=== PATIENT | female | born 1960 | race Caucasian/White ===

== ENCOUNTER 2019-01-15 09:09 | Inpatient (IN) | payer OTHER ==
[~2019-01-15] VITALS: Ht 170.2 cm; Wt 120.0 kg
[2019-01-15 09:10] VITALS: Ht 170.2 cm; Wt 120.0 kg
--- NOTE | 2019-01-15 09:34 | NUR ---
PT LYING IN BED COMFORTABLY ON HER R SIDE WHICH IS MOST COMFORTABLE FOR HER PT DENIES NEED FOR ADDITIONAL PAIN MEDICINE AT THIS TIME. DAUGHTER AT BEDSIDE WILL MONITOR. AWAITING MD HORNE AND FURTHER ORDERS
--- NOTE | 2019-01-15 11:36 | NUR ---
MSE COMPLETED BY DR PAINTER
--- NOTE | 2019-01-15 12:00 | NUR ---
PT ASSISTED TO BEDPAN TO VOID WITH NO PROBLEM
--- NOTE | 2019-01-15 12:09 | NUR ---
PT MEDICATED PER MD ORDERS SEE EMAR. PT AAOX4 NO DISTRESS. VSS WILL MONITOR FOR ANY ADVERSE EFFECTS
--- NOTE | 2019-01-15 12:39 | NUR ---
PT CRYING STATES PAIN IS WORSE 03/[address] PAINTER AT BEDSIDE AWAITING FURTHER ORDERS
[2019-01-15 12:58] LABS: BASOPHIL % 0.3 % (0-2); PLATELET COUNT 170 x10^3mcL (130-400); RED CELL DISTRIBUTION WIDTH 12.1 % (11.5-14.5)
[2019-01-15 13:00] LABS: CALCIUM 8.8 mg/dL (8.5-10.1); CARBON DIOXIDE 28.7 mmol/L (21-32); CHLORIDE SERUM 107 mmol/L (98-107); CREATININE SERUM 0.7 mg/dL (0.6-1.0); GFR1 > 60 mL/min; GLUCOSE SERUM 107 mg/dL (74-106); POTASSIUM SERUM 3.6 mmol/L (3.5-5.1); SODIUM SERUM 144 mmol/L (136-145)
[2019-01-15 13:05] LABS: ALBUMIN 3.9 g/dL (3.4-5.0); ALKALINE PHOSPHATASE 64 U/L (46-116); ALT/SGPT 72 U/L (14-59); AST/SGOT 32 U/L (15-37); BILIRUBIN TOTAL 0.55 mg/dL (0.20-1.00); TOTAL PROTEIN, SERUM 7.2 g/dL (6.4-8.2)
--- NOTE | 2019-01-15 13:06 | NUR ---
PT BACK FROM CT. PT WRETCHING NAUSEAOUS AFTER CT. ER MD NOTIFIED. AWAITING MD ORDERS.
--- NOTE | 2019-01-15 13:45 | NUR ---
REPORT GIVEN TO MARAH RN RESUMING CARE OF PT IN MED SURG FLOOR.
[2019-01-15] MEDS ORDERED: BENICAR HCT1 TAB (13:48)
[2019-01-15] MEDS ORDERED: ATENOLOL25 MG (13:48)
[2019-01-15] MEDS ORDERED: IBUPROFEN (13:49)
[2019-01-15] MEDS ORDERED: METFORMIN500 M1 (13:49)
--- NOTE | 2019-01-15 13:55 | NUR ---
PT NAUSEOUS VOMITING. DUE TO VOMITING PT HAD INCONTINENT EPISODE OF URINE IN BED. UNABLE TO CHANGE GOWN AND LINEN DUE TO SEVERE PAIN AND PT STATING SHE CAN'T MOVE. ER MD AWARE WILL MEDICATE PER MD ORDERS
--- NOTE | 2019-01-15 14:05 | NUR ---
PT MEDICATED PER MD ORDERS SEE EMAR. VSS
--- NOTE | 2019-01-15 14:12 | NUR ---
UPDATED REPORT GIVEN TO [facility] OF RECENT EVENTS. AWAITING OK FROM ER MD TO TRANSFER PT TO MED SURG FLOOR. WILL CONTINUE TO MONITOR
--- NOTE | 2019-01-15 14:20 | NUR ---
PT TO MED SURG FLOOR VIA AUDREY NO DISTRESS VSS IV SITE PATENT. TIH RESUMING CARE OF PT.
--- NOTE | 2019-01-15 14:30 | NUR ---
REEIVED PT FROM ER VIA AUDREY, ASSITED BY ERT, AXOX4, VERBAL, ABLE TO MAKE NEEDS KNOWN, PERLLA, NO REDNESS/DRAINAGE, DENIED CP/PRESSURE, DENIED N/V/D AT THIS TIME, NO FACIAL DROOP/SLURRED SPEECH, RESP EVEN AND NON-LABORED, CHEST RISE SYMMETRICALLY, ABD SOFT AND NON-TERNDER TO TOUCH, LAST BM 01/13/19, SOFT PER PT REPORTED, ABLE TO MOVE ALL EXTREMITIES, REPORTED BACK PAIN, 5/10, DULL, INTERMITTEN BUT WAS ABLE TO FALL ASLEEP AFTER ASSESSMENT, GENERALIZED WEAKNESS, PALP PULSES, CAP REFILL < 3 SECS, SKIN W/D/C, IV PATENT AND NO INFILTRATION NOTED, CONTINENT, AMBULATORY W/ ASSIST, ALL NEEDS ADDRESSED AT THIS TIME, CALL LIGHT IN REACH, BED LOCKED AT LOW POSITION, RAILS X 2, EDUCATED TO CALL FOR ASSISTANCE WHEN OOB, VERBALLY UNDERSTANDING, CONTINUE TO MONITOR
[2019-01-15 14:54] VITALS: BP 152/62
--- NOTE | 2019-01-15 15:35 | NUR ---
DR BRAUNED PAGED RELATED TO PT DIET ORDER, NO CALL BACK AT THIS TIME, CHARGE NURSE PASTOR MADE AWARE
--- NOTE | 2019-01-15 15:46 | NUR ---
PT SLEEPING IN BED, IN NO APPARENT DISTRESS, CONTINUE TO MONITOR
--- NOTE | 2019-01-15 16:25 | NUR ---
URINE COLLECTED FOR UA, MRSA SCREENING DONE, PT RESTING W/ EYES CLOSED IN BED AT THIS TIME, IN NO APPARENT DISTRESS, REPOTED TOLERABLE PAIN, PAIN, CONTINUE TO MONITOR
--- NOTE | 2019-01-15 17:17 | NUR ---
DR LOMBARDI PAGED R/T PT NEW ADMIT DIET F/U AND PT REPORTED DISCOMFRT OF STOMACH BUT N/V AT THIS TIME, NO CALL BACK AT THIS TIME, CHARGE NURSE PASTOR MADE AWARE, CONTINUE TO MONITOR
[2019-01-15 17:31] LABS: UA SPECIFIC GRAVITY >=1.030 (1.005-1.035); microscopic required? YES; urine erythrocyte NEGATIVE (NEGATIVE)
[2019-01-15] MEDS ORDERED: BENICAR HCT1 TA1 PO (17:36)
--- NOTE | 2019-01-15 18:14 | NUR ---
PT SLEEPING IN BED, IN NO APPARENT DISTRESS/PAIN, RESP EVEN AND NON-LABORED, SEEN BY MD, CHEST RISE SYMMETRICALLY, IV PATENT AND FLUSHING WELL, ABD SOFT AND NON-TENDER TO TOUCH, BS ACTIVE X 4, CONTINENT, AMBULATORY W/ ASSISTM PT EVAL, ALL NEEDS ADDRESSED AT THIS TIME, SAFETY PROTOCOL FOLLOWED, WILL ENDORSE TO ONCOMING RN
[2019-01-15 18:24] VITALS: BP 153/73
--- NOTE | 2019-01-15 19:50 | NUR ---
PATIENT RECEIVED RESTING IN BED. RESPIRATION EVEN AND UNLABORED, ON ROOM AIR. SALINE LOCK TO RIGHT FOREARM INTACT. DENIES PAIN A THIS TIME. LBM 01/13/2019. VOIDING FREELY WITHOUT DIFFICULTY. GENERALIZED WEAKNESS TO EXTREMITIES. SKIN DRY AND INTACT. WILL CONTINUE TO MONITOR.
[2019-01-15 20:25] VITALS: BP 141/71
--- NOTE | 2019-01-15 20:59 | NUR ---
PATIENT COMPLAINED OF LEFT HIP PAIN GOING DOWN TO HIS LEFT LEG, PS 5/10. MEDICATED WITH MORPHINE SULFATE 2 MG IVP ORDERED. WILL CONTINUE TO MONITOR.
[2019-01-15] MEDS ORDERED: LYRICA75 M1 PO ×2 (21:59→22:00)
[2019-01-15] MEDS ORDERED: ESOMEPRAZOLE MA40 MG PO (22:02)
[2019-01-15] MEDS ORDERED: VOLTAREN100 GM (22:03)
[2019-01-15] MEDS ORDERED: FOL1 PO (22:06)
[2019-01-15] MEDS ORDERED: CYMBALTA30 M1 (22:08)
[2019-01-15] MEDS ORDERED: BENICAR40 M1 PO (22:09)
[2019-01-15] MEDS ORDERED: IBUPROFEN400 MG PO (22:11)
[2019-01-15] MEDS ORDERED: ALPRAZOLAM1 MG PO (22:12)
[2019-01-15] MEDS ORDERED: PLA200 PO (22:14)
[2019-01-15] MEDS ORDERED: GLU500 PO (22:15)
[2019-01-15] MEDS ORDERED: ROSUVASTATIN CA10 MG PO (22:16)
[2019-01-15] MEDS ORDERED: ATENOLOL50 MG PO (22:18)
[2019-01-15] MEDS ORDERED: CALCITRIOL0.25 MCG PO (22:18)
[2019-01-15] MEDS ORDERED: TOVIAZ8 MG PO (22:19)
--- NOTE | 2019-01-16 02:48 | NUR ---
PATIENT CRYING, COMPLAINING OF CRAMPING PAIN TO HER LEGS, PS 10/10. MEDICATED WITH MORPHINE SULFATE 2 MG IVP ORDERED. WILL CONTINUE TO MONITOR.
[2019-01-16 05:32] VITALS: BP 177/98
--- NOTE | 2019-01-16 06:11 | NUR ---
PATIENT COMPLAINED OF LEG PAIN, PS 10/10. MEDICATED WITH MORPHINE SULFATE 2 MG IVP ORDERED. NO ACUTE DISTRESS NOTED. IV SITE NO SIGN OF INFILTRATION. ASSISTED WITH NEEDS. SAFETY OBSERVED. PLACED BED IN THE LOWEST POSITION. PLACED CALL LIGHT WITHIN REACH AT ALL TIMES.
--- NOTE | 2019-01-16 07:10 | NUR ---
RECEIVED PT FROM CANDE RN. PT LAYING IN BED. RATES BACK PAIN 2/10 AT THIS TIME. REPORTS TOLERABLE, DECLINED TO PAIN MED. NO S/S OF ACUTE DISTRESS. NO SOB ON ROOM AIR. NO CHEST PAIN. MEDSURG. IV WNL TORFA, NO REDNESS, NO SWELLING, NO INFILTRATION. PT CALM/COOPERATIVE. INSTRUCTED TO USE CALL LIGHT TO CALL FOR ASSISTANCE PRN AND BEFORE GETTING OOB. VERBALIZED UNDERSTANDING. FALL PREC IN PLACE. WILL CONTINUE TO MONITOR.
[2019-01-16 08:05] VITALS: BP 106/61
[2019-01-16 08:06] VITALS: BP 158/77
[2019-01-16 08:33] LABS: BASOPHIL % 0.3 % (0-2); PLATELET COUNT 186 x10^3mcL (130-400); RED CELL DISTRIBUTION WIDTH 12.3 % (11.5-14.5)
[2019-01-16 08:51] LABS: CALCIUM 9.2 mg/dL (8.5-10.1); CARBON DIOXIDE 28.4 mmol/L (21-32); CHLORIDE SERUM 104 mmol/L (98-107); CREATININE SERUM 0.7 mg/dL (0.6-1.0); GFR1 > 60 mL/min; GLUCOSE SERUM 152 mg/dL (74-106); POTASSIUM SERUM 4.1 mmol/L (3.5-5.1); SODIUM SERUM 141 mmol/L (136-145)
--- NOTE | 2019-01-16 11:49 | NUR ---
PT COMPLAINT OF PAIN TO BACK RADIATING TO BLE. RATES PAIN 5/10 WHILE LAYING IN BED, 10/10 WITH MOVEMENT/AMBULATION. GIVEN IV PAIN MED, SEE MAR. PT TEARFUL, GRIMACING. AA/OX4. VS STABLE. NO SOB ON ROOM AIR, O2 SAT 96%. RR EVEN/UNLABORED. NO CHEST PAIN. CALM/COOPERATIVE. ASSISTED TO BEDPAN. VOID X1. PERICARE PROVIDED. BED IN LOW POSITION. CALL LIGHT WITHIN REACH. FALL PRECAUTIONS IN PLACE. WILL CONTINUE TO MONITOR.
[2019-01-16 12:10] VITALS: BP 147/72
[2019-01-16 16:19] VITALS: BP 124/73
--- NOTE | 2019-01-16 17:10 | NUR ---
PHYSICAL THERAPY NOTE ATTEMPTED FOR PHYSICAL THERAPY EVAL, PATIENT REFUSED 2/2 PAIN ON THE LOWER BACK 03/14, TO BE SEEN TOMORROW.
--- NOTE | 2019-01-16 17:44 | NUR ---
ASSISTED PT AMBULATE TO RESTROOM, GAIT STEADY, ACTIVE ROM NOTED BUE/BLE. COMPLAINT OF PAIN TO LLE WITH ACTIVITY. VOID X1. GOWN CHANGED. PT CALM/COOPERATIVE LAYING IN BED. RATES PAIN TO LLE 0/10 BEFORE AMBULATING. RATES 5/10 AFTER AMBULATING. NO SOB ON ROOM AIR. NO CHEST PAIN. CALM/COOPERATIVE. DENIES BACK PAIN AT THIS TIME. NO TOLBERT. NO DIZZINESS. AA/OX4. BED IN LOW POSITION. CALL LIGHT WITHIN REACH. WILL CONTINUE TO MONITOR.
--- NOTE | 2019-01-16 18:19 | NUR ---
PT LAYING IN BED. AA/OX4. REPORTS PAIN DECREASED, REPORTS PAIN TO LLE TOLERABLE AT THIS TIME. NO S/S OF ACUTE DISTRESS. NO SOB ON ROOM AIR. NO TOLBERT. NO DIZZINESS. NO SOB ON ROOM AIR. PT MOVED FROM 238A TO ROOM 239A. FAMILY MEMBER AT BEDSIDE. NO CHEST PAIN. NO N/V. IV WNL TO RFA, SALINE LOCKED. BED IN LOW POSITION. CALL LIGHT WITHIN REACH. WILL ENDORSE TO ONCOMING SHIFT.
--- NOTE | 2019-01-16 19:30 | NUR ---
RECEIVED PT FROM DAY SHIFT RN. PT AAOX4 DENIES TOLBERT/DIZZINESS. BREATHING EVEN AND UNLABORED WITH NO SOB NOTED. MED SURG PT DENIES CHEST PAIN/PRESSURE. BLE SCAB/ ECCHYMOSIS NOTED. IV RIGHT HAND PATENT, SL. ABD DISTENDED, ACTIVE BOWEL SOUNDS. DENIES ABD PAIN/N/V. PT DENIES ANY PAIN AT THIS TIME. NO SIGNS OF ACUTE DISTRESS. CALL BUTTON WITHIN REACH. SAFETY PRECAUTIONS IN PLACE. DAUGHTER AT BEDSIDE. WILL CONTINUE TO MONITOR.
[2019-01-16 20:53] VITALS: BP 152/76
--- NOTE | 2019-01-17 01:02 | NUR ---
PT RESTING. BREATIHNG EVEN AND UNLABORED WITH NO SOB NOTED. SAFETY PRECAUTIONS IN PLACE. WILL CONTINUE TO MONITOR.
--- NOTE | 2019-01-17 02:04 | NUR ---
PT REPORTED HAVING LEG PAIN /. MEDICATED PER EMAR. CALL BUTTON WITHIN REACH. SAFETY PRECAUTIONS IN PLACE. WILL CONTINUE TO MONITOR.
--- NOTE | 2019-01-17 03:34 | NUR ---
ROUNDS MADE. PT RESTING. BREATHING EVEN AND UNLABORED WITH NO SIGNS OF DISTRESS. SAFETY PRECAUTIONS IN PLACE. WILL CONTINUE TO MONITOR.
--- NOTE | 2019-01-17 05:04 | NUR ---
PT SLEPT ON AND OFF THROUGHOUT THE NIGHT WITH NO SIGNS OF DISTRESS. BREATHING EVEN AND UNLABORED ON RA WITH NO SOB NOTED. PT AMBULATES WITH ASSISTANCE. PT REPORTED LEG PAIN, MEDICATED PER EMAR WITH SOEM RELIEF. PT IV PATENT, SL. CALL BUTTON WITHIN REACH. SAFETY PRECAUTIONS IN PLACE. WILL CONTINUE TO MONITOR AND ENDORSE CARE TO DAY SHIFT RN.
[2019-01-17 06:00] VITALS: BP 147/79
--- NOTE | 2019-01-17 06:00 | NUR ---
PT REPORTED LEG PAIN. PAIN MEDICATION ADMINISTERED. CALL BUTTON WITHIN REACH. SAFETY PRECAUTIONS IN PLACE. WILL CONTINUE TO MONITOR.
--- NOTE | 2019-01-17 06:16 | NUR ---
PT REPORTED LEG PAIN. PAIN MEDICATION ADMINISTERED. CALL BUTTON WITHIN REACH. SAFETY PRECAUTIONS IN PLACE. WILL CONTINUE TO MONITOR.
[2019-01-17 06:44] LABS: BASOPHIL % 0.2 % (0-2); PLATELET COUNT 213 x10^3mcL (130-400); RED CELL DISTRIBUTION WIDTH 12.6 % (11.5-14.5)
[2019-01-17 06:59] LABS: CALCIUM 9.5 mg/dL (8.5-10.1); CARBON DIOXIDE 25.9 mmol/L (21-32); CHLORIDE SERUM 102 mmol/L (98-107); CREATININE SERUM 0.7 mg/dL (0.6-1.0); GFR1 > 60 mL/min; GLUCOSE SERUM 156 mg/dL (74-106); POTASSIUM SERUM 3.8 mmol/L (3.5-5.1); SODIUM SERUM 140 mmol/L (136-145)
--- NOTE | 2019-01-17 07:05 | NUR ---
RECEIVED PT FROM NIGHT NURSE. PT IS LAYING DOWN IN BED WITH HOB UP RESTING WITH EYES CLOSED. PT LOOKS TO BE IN NO ACUTE DISTRESS AT THIS TIME. IV SITE PATENT WITH NO SIGNS OF ERYTHEMA OR SWELLING WITH IVL H/L. RESPIRATIONS EVEN AND UNLABORED ON ROOM AIR. BED IN LOWEST POSITION, CALL LIGHT WITHIN REACH. WILL CONTINUE TO MONITOR.
--- NOTE | 2019-01-17 07:17 | NUR ---
PT RESTING IN NO SIGNS OF DISTRESS. ENDORSED CARE TO DAY SHIFT RN, ALL QUESTIONS ADDRESSED.
[2019-01-17 09:05] VITALS: BP 154/64
--- NOTE | 2019-01-17 09:06 | NUR ---
PT COMPLAINING OF RIGHT WRIST PAIN WHERE THE IV IS AND IS REQUESTING TO HAVE A NEW IV. PT STATES THE PAIN IS NOT CAUSED FROM THE IV BUT SINCE SHE HAD SURGERY ON THE RIGHT WRIST, THE IV IS MAKING IT MORE UNCOMFORTABLE. NEW IV STARTED ON THE RIGHT FOREARM, PT STATES THE WRIST FEELS BETTER AT THIS TIME. DC'ED RIGHT WRIST IV, CATHETER FULLY INTACT.
--- NOTE | 2019-01-17 12:25 | NUR ---
PT IS LAYING DOWN IN BED CRYING COMPLAINING OF CRAMPING PAIN TO THE LEG. PT STATES THAT SHE IS UNABLE TO MOVE WITHOUT PAIN. PT IS REQUESTING TO HAVE TYLENOL AND HEAT TO HELP WITH THE PAIN. APPLIED K-PAD AND MEDICATED ACCORDING TO EMAR. PT IS NOW LAYING DOWN IN BED AND IS NO LONGER CRYING. MADE PT COMFORTABLE IN BED. CALL LIGHT WITHIN REACH. WILL CONTINUE TO MONITOR.
--- NOTE | 2019-01-17 15:18 | NUR ---
PT IS LAYING DOWN IN BED WITH HOB UP RESTING. PT LOOKS TO BE IN NO ACUTE DISTRESS AND STATES HER PAIN TO HER LEFT LEG IS TOLERABLE AT THIS TIME AT A 3/10. K-PAD TO LEFT LEG AND PT STATES THE HEAT IS HELPING WITH THE PAIN. BED IN LOWEST POSITION, CALL LIGHT WITHIN REACH. WILL CONTINUE TO MONITOR.
[2019-01-17 17:03] VITALS: BP 145/64
--- NOTE | 2019-01-17 18:32 | NUR ---
PT IS LAYING DOWN IN BED WITH HOB UP RESTING WITH EYES CLOSED. RESPIRATIONS EVEN AND UNLABORED ON ROOM AIR. PT LOOKS TO BE IN NO ACUTE DISTRESS AT THIS TIME. K PAD AT BEDSIDE. IV SITE PATENT WITH NO SIGNS OF ERYTHEMA OR SWELLING WITH IV H/L. BED IN LOWEST POSITION, CALL LIGHT WITHIN REACH. WILL ENDORSE TO ONCOMING SHIFT.
[2019-01-17 19:28] VITALS: BP 137/64
--- NOTE | 2019-01-17 20:35 | NUR ---
PT CURRENTLY RESTING IN BED, NO ACUTE DISTRESS. A/O X4. NO TELE, MED/SURG. DENIES CHEST PAIN. PULSES PALPABLE IN ALL EXTREMITIES, NO EDEMA NOTED. LUNG SOUNDS CTA BILATERALLY, DENIES SOB. BOWEL SOUNDS ACTIVE, LAST BM 01/12/19. POOR APPETITE. VOIDING WELL. GENERALIZED WEAKNESS, PT STATES INTENSE BLE AND LOWER BACK PAIN WHILE AMBULATING. BACK PAIN 3/10 AT THIS TIMES, PT STATES PAIN IS TOLERABLE. 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 IV PATENT AND INTACT. BED IN LOWEST POSITION, SIDE RAILS UP X2, CALL LIGHT WITHIN REACH. WILL CONTINUE TO MONITOR.
--- NOTE | 2019-01-18 00:25 | NUR ---
PT CURRENTLY RESTING IN BED, C/O LLE PAIN 09/12, MEDICATED PER EMAR. WILL CONTINUE TO MONITOR.
[2019-01-18 06:01] VITALS: BP 154/64
--- NOTE | 2019-01-18 06:04 | NUR ---
PT SLEPT PERIODICALLY THROUGHOUT NIGHT, C/O LEFT BUTTOCK AND LEFT LEG PAIN, MEDICATED PER EMAR. ALL NEEDS MET AND ATTENDED TO. NO SIGNIFICANT CHANGES. IV PATENT AND INTACT. BED IN LOWEST POSITION, SIDE RAILS UP X2, CALL LIGHT WITHIN REACH. WILL ENDORSE CARE TO ONCOMING NURSE.
--- NOTE | 2019-01-18 07:34 | NUR ---
ASSUMED CARE OF PATIENT. SEEN RESTING IN BED WITH EQUAL AND UNLABORED RESPIRATIONS. NO APPARENT DISTRESS NOTED. IV TO RFA SALINE LOCKED. WILL CONITNUE TO MONITOR.
--- NOTE | 2019-01-18 08:06 | NUR ---
PATIENT SEEN TEARFUL AND COMPLAINING OF 9/10 PAIN. PRN MORPHINE PROVIDED.
[2019-01-18 08:41] VITALS: BP 167/85
--- NOTE | 2019-01-18 10:07 | NUR ---
PATIENT SEEN SLEEPING WITH EQUAL AND UNLABORED RESPIRATIONS. NO APPARENT DISTRESS NOTED.
--- NOTE | 2019-01-18 11:17 | NUR ---
PATIENT SEEN RESTING IN ROOM WITH AT BEDSIDE. NO COMPLAINTS OF PAIN OR DISCOMFORT. NO NEW ISSUES.
[2019-01-18 12:54] VITALS: BP 167/85
--- NOTE | 2019-01-18 14:05 | NUR ---
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 DISCHARGE INFORMATION AND EDUCATION PROVIDED.
--- NOTE | 2019-01-18 14:25 | NUR ---
REPORT GIVEN TO CANDICE HAIR AT [facility].
--- NOTE | 2019-01-18 15:14 | NUR ---
PHYSICAL THERAPY DAILY NOTES CO-SIGN All documentation done by the Care Taker for 01/18/19 has been reviewed. I agree with the documentation. Reviewed/Co-Signed by: Vicky Kemp PT Documentation Done by:WENDY DEL VALLE PTA
[2019-01-18 16:30] VITALS: BP 149/64
--- NOTE | 2019-01-18 17:34 | NUR ---
IV REMOVED WITH CATHTER INTACT. ID BANDS REMOVED. PATIENT PREPARED FOR TRANSFER.
--- NOTE | 2019-01-18 18:43 | NUR ---
PATIENT DISCHARGED VIA GURNEY WITH PREMIER. COMPLAINTS OF 3/10 LEFT LEG PAIN, ALREADY MEDICATED PER EMAR PRIOR TO DISCHARGE. NO APPARENT DISTRESS IS NOTED. LEFT WITH ALL BELONGINGS. DAUGHTER AT SIDE.
== END 2019-01-18 18:45 | DRG 552 ==
LOC: ED 09:09 → MU 12:50
PROVIDERS: Specialist; ADMIT Internal Medicine
DX: M51.16 Intervertebral disc disorders with radiculopathy, lumbar region (principal); M48.061 Spinal stenosis, lumbar region without neurogenic claudication; M19.90 Unspecified osteoarthritis, unspecified site; E11.9 Type 2 diabetes mellitus without complications; K21.9 Gastro-esophageal reflux disease without esophagitis; I10 Essential (primary) hypertension; Z96.662 Presence of left artificial ankle joint; Z96.661 Presence of right artificial ankle joint; Z68.38 Body mass index [BMI] 38.0-38.9, adult; Z79.84 Long term (current) use of oral hypoglycemic drugs; W18.2XXA Fall in (into) shower or empty bathtub, initial encounter; Y93.E1 Activity, personal bathing and showering; Y92.002 Bathroom of unspecified non-institutional (private) residence as the place of occurrence of the external cause
CPT/HCPCS: 82962; 97110-GP; 97530-GP; G0378; J2270; J2405; J2800; J2920; J3010; J3490; Q0092